=== PATIENT | male | born 1975 | race Caucasian/White ===

== ENCOUNTER 2016-04-09 20:37 | Emergency (ER) | payer BC, OTHER ==
[~2016-04-09] VITALS: Ht 188 cm; Wt 109.0 kg
[2016-04-09 20:39] VITALS: TEMP 37.5
[2016-04-09] MEDS ORDERED: ALBUT/IPRATROP 3MG/0.5MG NEB 3 ML VIAL INH STA (20:50)
[2016-04-09 20:53] VITALS: Ht 188 cm; Wt 109.0 kg
[2016-04-09 20:58] VITALS: O2SAT 94
--- NOTE | 2016-04-09 21:08 | DIAGNOSTIC IMAGING REPORT ---
CHEST ONE VIEW PORTABLE CLINICAL HISTORY: Respiratory distress COMPARISON STUDY: 11/30/2008 FINDINGS: The heart is at the upper limits of normal in size. There is no focal pulmonary consolidation. There is no overt failure. There are no pleural effusions. There are relatively low lung volumes with mild bronchovascular crowding at the lung bases[ IMPRESSION: Somewhat low lung volumes with bronchovascular crowding at the lung bases. No evidence of lobar consolidation Electronically signed by: Caleb Fisher M.D. 04/09/2016 9:07 PM Dictated Date/Time: 04/09/2016 9:05 PM
[2016-04-09 21:24] LABS: BASO % 0.2 %; BASO ABS # 0.01 K/uL (0-0.2); COMPLETE YES; EOS % 1.1 %; HEMATOCRIT 44.3 % (42-52); IG% 0.2 %; LYMPH ABS # 2.04 K/uL (1.2-3.4); MEAN CELL VOLUME 84.1 fL (80-100); MEAN CORPUSCULAR HGB CONC 34.5 g/dl (32-36); MEAN PLATELET VOLUME 9.6 fL (7.4-10.4); MONO % 17.1 %; NEUT % 50.4 %; PLATELET COUNT 264 K/uL (130-400); RED BLOOD COUNT 5.27 M/uL (4.7-6.1); WHITE BLOOD COUNT 6.59 K/uL (4.8-10.8)
[2016-04-09 21:37] LABS: PARTIAL THROMBOPLASTIN RATIO 1.3; PROTHROMBIN TIME (PATIENT) 10.5 SECONDS (9.0-12.0)
[2016-04-09 21:42] LABS: ALT/SGPT 40 U/L (12-78); BLOOD UREA NITROGEN 10 mg/dl (7-18); CALCIUM 8.3 mg/dl (8.5-10.1); CARBON DIOXIDE 26 mmol/L (21-32); CHLORIDE 103 mmol/L (98-107); CREATININE 0.98 mg/dl (0.60-1.40); GLUCOSE 126 mg/dl (70-99); POTASSIUM 3.6 mmol/L (3.5-5.1); SODIUM 137 mmol/L (136-145)
[2016-04-09 21:47] LABS: ALKALINE PHOSPHATASE 39 U/L (45-117); AST/SGOT 24 U/L (15-37)
[2016-04-09] MEDS ORDERED: METHYLPREDNISOLONE 125 MG VIAL IV STA (21:48)
[2016-04-09] MEDS ORDERED: AZITHROMYCIN 250 MG TAB PO STA (21:48)
[2016-04-09] MEDS ORDERED: AZIT250T PO (22:14)
[2016-04-09] MEDS ORDERED: PRED20TA2 PO (22:14)
[2016-04-09] MEDS ORDERED: VNTHFA/IN INH (22:14)
[2016-04-09] MEDS ORDERED: OXYCODONE IR HOME PACK PO ONE (22:15)
[2016-04-09 22:43] LABS: MANUAL MICROSCOPIC REQUIRED? NO; REVIEW REQ? NO; URINE APPEARANCE CLOUDY (CLEAR); URINE BILIRUBIN NEG (NEG); URINE COLOR DK YELLOW; URINE NITRITE NEG (NEG); URINE SPECIFIC GRAVITY 1.035 (1.000-1.030); UROBILINOGEN NEG (NEG)
[2016-04-09 23:06] VITALS: BP 114/73; PULSE 93; O2SAT 95
--- NOTE | 2016-04-10 15:42 | EMERGENCY ROOM VISIT NOTE ---
History Report prepared by Dea: Sonia Ye Under the Supervision of: Dr. Silverio Barragan D.O. First contact with patient: 20:42 Chief Complaint: COUGH Stated Complaint: COUGH,CHEST PAIN History of Present Illness The patient is a 40 year old male who presents to the Emergency Room with complaints of worsening cough with onset several days ago. He rates his discomfort as a 3/10. The patient notes that he has been coughing so much that he is experiencing chest and abdominal pain. The patient's cough is nonproductive. He has never had a similarly severe cough. The patient is having some pain at the top of his feet. The patient has chills. He denies fevers, nausea, vomiting, leg swelling, history of blood clots, other medical problems, history of smoking. Source of History: patient Onset: several days ago Position: chest Symptom Intensity: 3/10 Quality: other (cough) Timing: worsening Associated Symptoms: + abdominal pain, + chest pain, + chills, No fevers, No nausea, No vomiting Review of Systems See HPI for pertinent positives & negatives. A total of 10 systems reviewed and were otherwise negative. Past Medical & Surgical Medical Problems: (1) History of broken nose Family History Patient reports no known family medical history. Social History Smoking Status: Never Smoker Marital Status: Housing Status: lives with family Occupation Status: employed Current/Historical Medications Scheduled Albuterol Hfa (Ventolin Hfa), 1 PUFF INH Q4 Azithromycin (Zithromax), 250 MG PO DAILY Prednisone (Prednisone Tab), 40 MG PO DAILY Allergies Coded Allergies: Aspirin (Verified Allergy, Unknown, 08/14/11) Physical Exam Vital Signs Date Time Temp Pulse Resp B/P Pulse Ox O2 Delivery O2 Flow Rate FiO2 04/09/16 23:06 93 18 114/73 95 04/09/16 21:59 97 18 124/85 96 Room Air 04/09/16 21:13 109 04/09/16 20:58 94 Room Air 04/09/16 20:58 94 Room Air 04/09/16 20:48 96 Room Air 04/09/16 20:39 37.5 123 18 129/82 96 Room Air Physical Exam GENERAL: Patient is awake alert, somewhat anxious appearing, overall comfortable. EYES: The conjunctivae are clear. The pupils are round and reactive. EARS, NOSE, MOUTH AND THROAT: The nose is without any evidence of any deformity. Mucous membranes are moist tongue is midline NECK: The neck is nontender and supple. RESPIRATORY: Diminished breath sounds throughout with scattered wheezing noted in both upper lung butler, poor air movement was noted throughout. CARDIOVASCULAR: Tachycardic rate and regular rhythm noted, no definite murmur. GASTROINTESTINAL: The abdomen is soft. Bowel sounds are present in all quadrants. Abdomen is nontender MUSCULOSKELETAL/EXTREMITIES: There is no evidence of gross deformity full range of motion is noted in the hips and shoulders SKIN: There is no obvious evidence of any rash. There are no petechiae, pallor or cyanosis noted. NEUROLOGIC: Patient is awake alert and oriented x3. Medical Decision & Procedures ER Provider Diagnostic Interpretation: X-ray results as stated below per interpretation by me and the radiologist. CHEST ONE VIEW PORTABLE CLINICAL HISTORY: Respiratory distress COMPARISON STUDY: 11/30/2008 FINDINGS: The heart is at the upper limits of normal in size. There is no focal pulmonary consolidation. There is no overt failure. There are no pleural effusions. There are relatively low lung volumes with mild bronchovascular crowding at the lung bases[ IMPRESSION: Somewhat low lung volumes with bronchovascular crowding at the lung bases. No evidence of lobar consolidation Electronically signed by: Caleb Fisher M.D. 04/09/2016 9:07 PM Dictated Date/Time: 04/09/2016 9:05 PM Laboratory Results 04/09/16 21:00 Red Blood Count 5.27, Mean Corpuscular Volume 84.1, Mean Corpuscular Hemoglobin 29.0, Mean Corpuscular Hemoglobin Concent 34.5, Mean Platelet Volume 9.6, Neutrophils (%) (Auto) 50.4, Lymphocytes (%) (Auto) 31.0, Monocytes (%) (Auto) 17.1, Eosinophils (%) (Auto) 1.1, Basophils (%) (Auto) 0.2, Neutrophils # (Auto ) 3.33, Lymphocytes # (Auto) 2.04, Monocytes # (Auto) 1.13, Eosinophils # (Auto ) 0.07, Basophils # (Auto) 0.01 04/09/16 21:00 Test 04/09/16 21:00 04/09/16 22:26 White Blood Count 6.59 K/uL (4.8-10.8) Red Blood Count 5.27 M/uL (4.7-6.1) Hemoglobin 15.3 g/dL (14.0-18.0) Hematocrit 44.3 % (42-52) Mean Corpuscular Volume 84.1 fL (80-100) Mean Corpuscular Hemoglobin 29.0 pg (25-34) Mean Corpuscular Hemoglobin Concent 34.5 g/dl (32-36) Platelet Count 264 K/uL (130-400) Mean Platelet Volume 9.6 fL (7.4-10.4) Neutrophils (%) (Auto) 50.4 % Lymphocytes (%) (Auto) 31.0 % Monocytes (%) (Auto) 17.1 % Eosinophils (%) (Auto) 1.1 % Basophils (%) (Auto) 0.2 % Neutrophils # (Auto) 3.33 K/uL (1.4-6.5) Lymphocytes # (Auto) 2.04 K/uL (1.2-3.4) Monocytes # (Auto) 1.13 K/uL (0.11-0.59) Eosinophils # (Auto) 0.07 K/uL (0-0.5) Basophils # (Auto) 0.01 K/uL (0-0.2) RDW Standard Deviation 38.8 fL (36.4-46.3) RDW Coefficient of Variation 12.9 % (11.5-14.5) Immature Granulocyte % (Auto) 0.2 % Immature Granulocyte # (Auto) 0.01 K/uL (0.00-0.02) Prothrombin Time 10.5 SECONDS (9.0-12.0) Prothromb Time International Ratio 1.0 (0.9-1.1) Activated Partial Thromboplast Time 34.3 SECONDS (21.0-31.0) Partial Thromboplastin Ratio 1.3 D-Dimer 420 ug/L FEU (0-500) Anion Gap 8.0 mmol/L (3-11) Est Creatinine Clear Calc Drug Dose 134.4 ml/min Estimated GFR () 112.9 Estimated GFR (Non- 97.4 BUN/Creatinine Ratio 10.0 (10-20) Calcium Level 8.3 mg/dl (8.5-10.1) Total Bilirubin 0.4 mg/dl (0.2-1) Aspartate Amino Transf (AST/SGOT) 24 U/L (15-37) Alanine Aminotransferase (ALT/SGPT) 40 U/L (12-78) Alkaline Phosphatase 39 U/L (45-117) Troponin I < 0.015 ng/ml (0-0.045) Total Protein 7.5 gm/dl (6.4-8.2) Albumin 3.7 gm/dl (3.4-5.0) Globulin 3.8 gm/dl (2.5-4.0) Albumin/Globulin Ratio 1.0 (0.9-2) Urine Color DK YELLOW Urine Appearance CLOUDY (CLEAR) Urine pH 5.0 (4.5-7.5) Urine Specific [place] 1.035 (1.000-1.030) Urine Protein NEG (NEG) Urine Glucose (UA) NEG (NEG) Urine Ketones TRACE (NEG) Urine Occult Blood NEG (NEG) Urine Nitrite NEG (NEG) Urine Bilirubin NEG (NEG) Urine Urobilinogen NEG (NEG) Urine Leukocyte Esterase NEG (NEG) Urine WBC (Auto) 1-5 /hpf (0-5) Urine RBC (Auto) 5-10 /hpf (0-4) Urine Hyaline Casts (Auto) 5-10 /lpf (0-5) Urine Epithelial Cells (Auto) 5-10 /lpf (0-5) Urine Bacteria (Auto) NEG (NEG) Laboratory results per my review. Medications Administered Medications (Trade) Dose Ordered Sig/Gissel Route Start Time Stop Time Status Last Admin Dose Admin Albuterol/ Ipratropium (Duoneb) 3 ml NOW STAT INH 04/09/16 20:50 04/09/16 20:51 DC 04/09/16 20:50 3 ML Methylprednisolone Sodium Succinate (Solu-Medrol IV) 125 mg NOW STAT IV 04/09/16 21:48 04/09/16 21:50 DC 04/09/16 21:59 125 MG Azithromycin (Zithromax Tab) 500 mg NOW STAT PO 04/09/16 21:48 04/09/16 21:50 DC 04/09/16 21:59 500 MG Oxycodone HCl (Roxicodone Immediate Rel 5MG Home Pack) 1 homepack UD ONCE PO 04/09/16 22:15 04/09/16 22:16 DC 04/09/16 22:52 1 HOMEPACK ECG Indication: chest pain Rate (beats per minute): 108 Rhythm: sinus tachycardia Findings: no ectopy, other (no acute ST segment abnormalities) Comparison ECG Date: no prior available ED Course 2044: The patient was evaluated in room C3. A complete history and physical examination were performed. 2049: Duoneb 3 ml INH 2147: Zithromax Tab 500 mg PO, Solu-Medrol 125 mg IV 2214: Oxycodone HCl 5 mg 1 homepack PO 2231: Upon reevaluation, the patient is doing well. I discussed the results and treatment plan with the patient. He verbalized agreement of the treatment plan. The patient was discharged home. Medical Decision Differential diagnosis: Etiologies such as infections, reactive airway disease, pneumonia, pneumothorax , COPD, CHF, cardiac ischemia, pulmonary embolism, musculoskeletal, gastrointestinal, as well as others were entertained. Nursing notes reviewed. The patient is a 40-year-old male who presented to the emergency apartment for an evaluation of chest pain and cough. The patient's history and physical exam appeared to be consistent with musculoskeletal chest pain from coughing and bronchitis. I discussed the patient's laboratory radiographic studies with him. He was treated with IV pain medicine bronchodilator therapy steroids and antibiotics. On subsequent reevaluation he was feeling much better. He was encouraged to rest and avoid any strenuous activity. He was encouraged to continue all medications as prescribed. He was also encouraged to follow-up with his family doctor as soon as possible for reevaluation but return to the emergency department immediately if symptoms change worsen or the need arises. Impression Primary Impression: Musculoskeletal chest pain Additional Impression: Bronchitis Scribe Attestation The scribe's documentation has been prepared under my direction and personally reviewed by me in its entirety. I confirm that the note above accurately reflects all work, treatment, procedures, and medical decision making performed by me. Departure Information Dispostion Home / Self-Care Prescriptions Prednisone (Prednisone Tab) 20 Mg Tab 40 MG PO DAILY, #10 TAB Prov: Silverio Barragan, DO 04/09/16 Albuterol Hfa (VENTOLIN HFA) 200 Puffs/54026 Mcg Aers 1 PUFF INH Q4, #1 INHALER Prov: Silverio Barragan, DO 04/09/16 Azithromycin (Zithromax) 250 Mg Tab 250 MG PO DAILY, #4 TAB Prov: Silverio Barragan, DO 04/09/16 Referrals No Doctor, Assigned (PCP) Forms HOME CARE DOCUMENTATION FORM, IMPORTANT VISIT INFORMATION, Work Instructions Patient Instructions ED Bronchitis Abx Tx, My [facility] Additional Instructions Call your family to schedule a follow-up appointment. Rest and avoid any strenuous activity. Continue all medications as prescribed. Problem Qualifiers
== END 2016-04-09 23:08 | disposition home or self-care (01) ==
LOC: C.EDB 20:38 → C.EDC 23:08
DX: R07.89 Other chest pain (principal); J40 Bronchitis, not specified as acute or chronic